=== PATIENT | female | born 1950 | race Caucasian/White ===

== ENCOUNTER 2022-02-24 08:00 | Outpatient (CLI) | payer MEDICARE ==
--- NOTE | 2022-02-24 13:37 | XRAY Report ---
PROCEDURE: Wrist 3 View LT INDICATIONS: LEFT THUMB AND WRIST PAIN TECHNIQUE: 3 views of the wrist were acquired. COMPARISON: None FINDINGS: Bones: No fractures or dislocations. No suspicious bony lesions. Mild carpometacarpal first joint space narrowing Soft tissues: No suspicious soft tissue calcifications. IMPRESSION: Mild first CMC osteoarthritis. No fracture. Reviewed by: Silvano Koenig MD on 02/24/2022 12:35 PM ALEYDA Approved by: Silvano Koenig MD on 02/24/2022 12:35 PM AKDT Station ID: [id number]
== END 2022-02-24 23:59 | disposition home or self-care (01) ==
LOC: DI.S 08:00
PROVIDERS: ATTEND Physician Assistant
DX: M18.9 Osteoarthritis of first carpometacarpal joint, unspecified (principal)